=== PATIENT | female | born 1980 ===

== ENCOUNTER 2019-09-06 08:45 | Inpatient (IN) | payer OTHER ==
[~2019-09-06] VITALS: Ht 167.6 cm; Wt 64.4 kg
== END 2019-09-12 10:05 | disposition home or self-care (01) | DRG 743 ==
LOC: O/R 09-10 05:51 → OB/GYN 09-10 05:51 → O/R 09-10 08:45 → SURH 09-10 08:45 → OB/GYN 09-10 11:40
PROVIDERS: ADMIT Obstetrics & Gynecology; ATTEND Obstetrics & Gynecology
PROC: 0UB70ZZ Excision of Bilateral Fallopian Tubes, Open Approach (ICD-10-PCS; 2019-09-10)
PROC: 0UB00ZZ Excision of Right Ovary, Open Approach (ICD-10-PCS; 2019-09-10)
PROC: 0UT90ZZ Resection of Uterus, Open Approach (ICD-10-PCS; principal; 2019-09-10 10:00)
DX: D25.1 Intramural leiomyoma of uterus (principal); N72 Inflammatory disease of cervix uteri; N80.1 Endometriosis of ovary; D50.0 Iron deficiency anemia secondary to blood loss (chronic)